=== PATIENT | female | born 1985 | race Caucasian/White ===

== ENCOUNTER 2019-06-09 13:08 | Emergency (ER) | payer BC ==
[~2019-06-09] VITALS: Ht 160 cm; Wt 94.0 kg
--- NOTE | 2019-06-09 14:41 | PHYS DOC ---
Past Medical History Past Medical History: Hypothyroid Additional Past Medical Histor: BRAIN TUMOR AT 22 MONTHS OLD Additional Past Surgical Histo: BRAIN TUMOR REMOVED Smoking Status: Never Smoker Alcohol Use: None Adult General Chief Complaint Chief Complaint: MECHANICAL FALL HPI HPI Patient is a 34 year old female who presents with a fall while she was in her mother's hospital room. The patient was watching them draw blood and is this happened she became faint and had a syncopal episode. The patient when she fell hit the back of her head on the floor and then had around 30 seconds of a tonic- clonic seizure. 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 Reports that she's having some dull pain to the front of her head and back of her head. Patient states she had not eaten today. Denies any additional symptoms. Review of Systems Review of Systems Constitutional: Denies fever or chills [] Eyes: Denies change in visual acuity, redness, or eye pain [] HENT: Denies nasal congestion or sore throat [] Respiratory: Denies cough or shortness of breath [] Cardiovascular: No additional information not addressed in HPI [] GI: Denies abdominal pain, nausea, vomiting, bloody stools or diarrhea [] : Denies dysuria or hematuria [] Musculoskeletal: Denies back pain or joint pain [] Integument: Denies rash or skin lesions [] Neurologic: Reports headache, denies focal weakness or sensory changes [] Endocrine: Denies polyuria or polydipsia [] Complete systems were reviewed and found to be within normal limits, except as documented in this note. Current Medications Current Medications Current Medications Medications (Trade) Dose Ordered Sig/Melissa Start Time Stop Time Status Last Admin Dose Admin Sodium Chloride 1,000 ml @ 1,000 mls/hr 1X ONCE 06/09/19 14:45 06/09/19 15:44 DC 06/09/19 15:09 1,000 MLS/HR Allergies Allergies Allergies Coded Allergies Type Severity Reaction Last Updated Verified Penicillins Allergy Severe sob 06/09/19 Yes amoxicillin Allergy Severe sob 06/09/19 Yes acetaminophen Allergy Intermediate rash 06/09/19 Yes hydrocodone Allergy Intermediate rash 06/09/19 Yes Physical Exam Physical Exam Constitutional: Well developed, well nourished, no acute distress, non-toxic appearance. [] HENT: Normocephalic, atraumatic, bilateral external ears normal, oropharynx moist, no oral exudates, nose normal. [] Eyes: PERRLA, EOMI, conjunctiva normal, no discharge. [] Cardiovascular:Heart rate regular rhythm, no murmur [] Lungs & Thorax: Bilateral breath sounds clear to auscultation [] Neurologic: Alert and oriented X 3, normal motor function, normal sensory function, no focal deficits noted. [] Psychologic: Affect normal, judgement normal, mood normal. [] Current Patient Data Vital Signs Vital Signs Date Time Temp Pulse Resp B/P (MAP) Pulse Ox O2 Delivery O2 Flow Rate FiO2 06/09/19 15:50 74 99 06/09/19 13:16 98.8 16 131/77 (95) Room Air 98.8 Lab Values Laboratory Tests Test 06/09/19 14:15 06/09/19 14:56 06/09/19 15:43 06/09/19 15:46 Glucose (Fingerstick) 80 mg/dL (70-99) White Blood Count 12.7 x10^3/uL (4.0-11.0) H Red Blood Count 5.21 x10^6/uL (3.50-5.40) Hemoglobin 13.4 g/dL (12.0-15.5) Hematocrit 40.8 % (36.0-47.0) Mean Corpuscular Volume 78 fL (79-100) L Mean Corpuscular Hemoglobin 26 pg (25-35) Mean Corpuscular Hemoglobin Concent 33 g/dL (31-37) Red Cell Distribution Width 13.1 % (11.5-14.5) Platelet Count 409 x10^3/uL (140-400) H Neutrophils (%) (Auto) 76 % (31-73) H Lymphocytes (%) (Auto) 17 % (24-48) L Monocytes (%) (Auto) 5 % (0-9) Eosinophils (%) (Auto) 2 % (0-3) Basophils (%) (Auto) 0 % (0-3) Neutrophils # (Auto) 9.7 x10^3/uL (1.8-7.7) H Lymphocytes # (Auto) 2.1 x10^3/uL (1.0-4.8) Monocytes # (Auto) 0.7 x10^3/uL (0.0-1.1) Eosinophils # (Auto) 0.2 x10^3/uL (0.0-0.7) Basophils # (Auto) 0.0 x10^3/uL (0.0-0.2) Sodium Level 141 mmol/L (136-145) Potassium Level 4.0 mmol/L (3.5-5.1) Chloride Level 106 mmol/L (98-107) Carbon Dioxide Level 26 mmol/L (21-32) Anion Gap 9 (6-14) Blood Urea Nitrogen 9 mg/dL (7-20) Creatinine 0.8 mg/dL (0.6-1.0) Estimated GFR (Cockcroft-Gault) 83.1 BUN/Creatinine Ratio 11 (6-20) Glucose Level 92 mg/dL (70-99) Calcium Level 9.0 mg/dL (8.5-10.1) Total Bilirubin 0.2 mg/dL (0.2-1.0) Aspartate Amino Transferase (AST) 15 U/L (15-37) Alanine Aminotransferase (ALT) 19 U/L (14-59) Alkaline Phosphatase 101 U/L (46-116) Troponin I Quantitative < 0.017 ng/mL (0.000-0.055) Total Protein 7.7 g/dL (6.4-8.2) Albumin 3.2 g/dL (3.4-5.0) L Albumin/Globulin Ratio 0.7 (1.0-1.7) L Urine Collection Type Unknown Urine Color Yellow Urine Clarity Cloudy Urine pH 5.5 Urine Specific [place] 1.015 Urine Protein Negative mg/dL (NEG-TRACE) Urine Glucose (UA) Negative mg/dL (NEG) Urine Ketones (Stick) Negative mg/dL (NEG) Urine Blood Negative (NEG) Urine Nitrite Negative (NEG) Urine Bilirubin Negative (NEG) Urine Urobilinogen Dipstick 0.2 mg/dL (0.2 mg/dL) Urine Leukocyte Esterase Moderate (NEG) Urine RBC 1-2 /HPF (0-2) Urine WBC 5-10 /HPF (0-4) Urine Squamous Epithelial Cells Many /LPF Urine Bacteria Many /HPF (0-FEW) Urine Mucus Marked /LPF POC Urine HCG, Qualitative Hcg negative (Negative) Laboratory Tests 06/09/19 14:56 Laboratory Tests 06/09/19 14:56 EKG EKG [] Radiology/Procedures Radiology/Procedures [facility] [address] [place] [address] IMAGING REPORT Signed PATIENT: JENNA GONZALEZ ACCOUNT: [id number] : 1985 LOCATION: ER AGE: 34 SEX: F EXAM STATUS: REG ER ORD. PHYSICIAN: JARON SOLITARIO APRN REASON: syncope fell had seizure +loc, hx of astrocytoma at 22 months in L [place]bell PROCEDURE: CT HEAD AND CERVICAL SPINE WO Exam: CT head and cervical spine without contrast INDICATION: Syncope, fall had seizure with loss of consciousness. History of astrocytoma at 22 months and left cerebellum. TECHNIQUE: Sequential axial images through the head and cervical spine were obtained without the administration of IV contrast. Comparisons: None FINDINGS: Head: Partial posterior cranial osteotomy changes with encephalomalacia in the left cerebellum. There is atrophy within the left cerebellum. No focal parenchymal lesion or hemorrhage is identified. There is no midline shift or sulcal effacement. No acute vascular territory infarction is identified. Steel-white distinction is preserved. The ventricular system is within normal limits without compression hydrocephalus. The basal cisterns are well maintained. The visualized portions of the paranasal sinuses and mastoid air cells are well-pneumatized. No acute fractures. Cervical spine: Straightening of the cervical spine which may be positional. Vertebral body heights are well-maintained. Fracture to the cervical spine is not identified. Visualized paraspinal soft tissues are unremarkable. Mild spondylotic change in cervical spine with degenerative disc disease greatest at C6-C7 and C7-T1. IMPRESSION: 1. Postprocedural changes at the left cerebellum with associated encephalomalacia and atrophy. No prior imaging available to assess for interval change. If there is concern for superimposed process MRI brain with contrast would better evaluate. 2. Negative CT C-spine for acute traumatic injury. Exposure: One or more of the following in the visualized dose reduction techniques were utilized for this examination: 1. Automated exposure control 2. Adjustment of the MA and/or KV according to patient size Use of iterative of reconstructive technique Electronically signed by: Flakito Rosas MD (06/09/2019 4:33 PM) [id number] DICTATED and SIGNED BY: FLAKITO ROSAS MD DATE: 06/09/19 163 [][facility] [address] [place] [address] IMAGING REPORT Signed PATIENT: JENNA GONZALEZ ACCOUNT: [id number] : 1985 LOCATION: ER AGE: 34 SEX: F EXAM STATUS: REG ER ORD. PHYSICIAN: JARON SOLITARIO APRN REASON: syncopal episode/CT HEAD/NECK COLLAR PROCEDURE: CHEST PA & LATERAL CHEST PA LATERAL Technique: PA and lateral views of the chest were obtained. Clinical History: Syncopal episode Comparison: None. Findings: The heart and pulmonary vasculature appear within normal limits. A few linear opacities lung bases are likely discoid atelectasis. The pleural margins are clear. Impression: No acute chest process is seen. Electronically signed by: Caleb Jaruegui III, MD (06/09/2019 4:34 PM) [id number] DICTATED and SIGNED BY: CALEB JAUREGUI III, MD DATE: 06/09/19 1634 Course & Med Decision Making Course & Med Decision Making Pertinent Labs and Imaging studies reviewed. (See chart for details) Will get labs, CT, chest x-ray, and EKG. Will observe patient. Labs, and imaging are unremarkable for acute changes. Will have family observe patient over the next several days and follow up with primary care provider. Dragon Disclaimer Dragon Disclaimer This electronic medical record was generated, in whole or in part, using a voice recognition dictation system. Departure Departure Impression: Primary Impression: Seizure Additional Impression: Syncope Disposition: HOME, SELF-CARE Condition: STABLE Referrals: ANIBAL CALLE MD (PCP) REGINE JACKSON MD Patient Instructions: Seizure, Adult, Syncope Additional Instructions: Thank you for visiting [facility]. We appreciate you trusting us with your care. If any additional problems come up don't hesitate to return to visit us. Please follow up with your primary care provider so they can plan additional care if needed and know about the problem that you had. If symptoms worsen come back to the Emergency Department. Any concerning symptoms that start such as chest pain, shortness of air, weakness or numbness on one side of the body, running high fevers or any other concerning symptoms return to the ER. Please follow up with your primary care doctor regarding this event. Please do not drive until cleared by a primary care doctor or a neurologist. Problem Qualifiers Additional Impression: Syncope Syncope type: unspecified Qualified Codes: R55 - Syncope and collapse JARON SOLITARIO APRN Jun 09, 2019 14:41
[2019-06-09] MEDS ORDERED: IV NORMAL SALINE 1000ML BAG 1,000 ML IV ONE (14:45)
[2019-06-09 15:15] LABS: BASO % 0 % (0-3); EOS # 0.2 x10^3/uL (0.0-0.7); EOS % 2 % (0-3); HEMATOCRIT 40.8 % (36.0-47.0); HEMOGLOBIN 13.4 g/dL (12.0-15.5); LYMPH # 2.1 x10^3/uL (1.0-4.8); LYMPH % 17 % (24-48); MEAN CORPUSCULAR HEMOGLOBIN 26 pg (25-35); MEAN CORPUSCULAR HGB CONC 33 g/dL (31-37); MEAN CORPUSCULAR VOLUME 78 fL (79-100); MONO # 0.7 x10^3/uL (0.0-1.1); MONO % 5 % (0-9); NEUT # 9.7 x10^3/uL (1.8-7.7); NEUT % 76 % (31-73); PLATELET COUNT 409 x10^3/uL (140-400); RED BLOOD COUNT 5.21 x10^6/uL (3.50-5.40); RED CELL DISTRIBUTION WIDTH 13.1 % (11.5-14.5); WHITE BLOOD COUNT 12.7 x10^3/uL (4.0-11.0)
[2019-06-09 15:27] LABS: CREATININE 0.8 mg/dL (0.6-1.0); GFR 83.1
[2019-06-09 15:35] LABS: ALBUMIN 3.2 g/dL (3.4-5.0); ALBUMIN/GLOBULIN RATIO 0.7 (1.0-1.7); TOTAL BILIRUBIN 0.2 mg/dL (0.2-1.0); TOTAL PROTEIN 7.7 g/dL (6.4-8.2)
--- NOTE | 2019-06-09 15:38 | EKG ---
[facility] [address] [place] [address] Test Date: 2019-06-09 Test Time: 14:53:53 Pat Name: JENNA GONZALEZ Department: Room: Gender: F Supplies P[employer]: : 1985 Requested By: JARON SOLITARIO Order Number: [id number] Reading MD: Measurements Intervals [place] Rate: 76 P: 0 IN: 160 QRS: 39 QRSD: 78 T: 52 QT: 392 QTc: 445 Interpretive Statements SINUS RHYTHM NORMAL ECG No previous ECG available for comparison
[2019-06-09 15:50] VITALS: BP 135/75
[2019-06-09 15:51] LABS: BILIRUBIN,URINE NEGATIVE (NEG); CLARITY,URINE CLOUDY; COLOR,URINE YELLOW; NITRITE,URINE NEGATIVE (NEG); PH,URINE 5.5; PROTEIN,URINE NEGATIVE (NEG-TRACE); UROBILINOGEN,URINE 0.2 mg/dL (0.2 mg/dL)
[2019-06-09 16:22] LABS: BACTERIA,URINE MANY /HPF (0-FEW); SQUAMOUS EPITHELIAL CELL,UR MANY /LPF
--- NOTE | 2019-06-09 16:36 | RAD ---
Exam: CT head and cervical spine without contrast INDICATION: Syncope, fall had seizure with loss of consciousness. History of astrocytoma at 22 months and left cerebellum. TECHNIQUE: Sequential axial images through the head and cervical spine were obtained without the administration of IV contrast. Comparisons: None FINDINGS: Head: Partial posterior cranial osteotomy changes with encephalomalacia in the left cerebellum. There is atrophy within the left cerebellum. No focal parenchymal lesion or hemorrhage is identified. There is no midline shift or sulcal effacement. No acute vascular territory infarction is identified. Steel-white distinction is preserved. The ventricular system is within normal limits without compression hydrocephalus. The basal cisterns are well maintained. The visualized portions of the paranasal sinuses and mastoid air cells are well-pneumatized. No acute fractures. Cervical spine: Straightening of the cervical spine which may be positional. Vertebral body heights are well-maintained. Fracture to the cervical spine is not identified. Visualized paraspinal soft tissues are unremarkable. Mild spondylotic change in cervical spine with degenerative disc disease greatest at C6-C7 and C7-T1. IMPRESSION: 1. Postprocedural changes at the left cerebellum with associated encephalomalacia and atrophy. No prior imaging available to assess for interval change. If there is concern for superimposed process MRI brain with contrast would better evaluate. 2. Negative CT C-spine for acute traumatic injury. Exposure: One or more of the following in the visualized dose reduction techniques were utilized for this examination: 1. Automated exposure control 2. Adjustment of the MA and/or KV according to patient size Use of iterative of reconstructive technique Electronically signed by: Flakito Tabares MD (06/09/2019 4:33 PM) [id number]
--- NOTE | 2019-06-09 16:37 | RAD ---
CHEST PA LATERAL Technique: PA and lateral views of the chest were obtained. Clinical History: Syncopal episode Comparison: None. Findings: The heart and pulmonary vasculature appear within normal limits. A few linear opacities lung bases are likely discoid atelectasis. The pleural margins are clear. Impression: No acute chest process is seen. Electronically signed by: Emeterio Horn III, MD (06/09/2019 4:34 PM) [id number]
== END 2019-06-09 17:12 | disposition home or self-care (01) ==
LOC: ER 13:08
DX: R56.9 Unspecified convulsions (principal); R55 Syncope and collapse; R51 Headache; E03.9 Hypothyroidism, unspecified; Z98.890 Other specified postprocedural states; Z88.0 Allergy status to penicillin; Z88.1 Allergy status to other antibiotic agents; Z88.6 Allergy status to analgesic agent; Z88.5 Allergy status to narcotic agent
CPT/HCPCS: 36415; 70450; 71046; 72125; 80053; 81001; 81025; 82962; 84484; 85025; 87086; 93005; 96360; 99285; J7030